=== PATIENT | male | born 1990 | race Caucasian/White ===

== ENCOUNTER 2022-11-19 14:52 | Emergency (ER) | payer SELFPAY ==
[~2022-11-19] VITALS: Ht 182.9 cm; Wt 81.6 kg
[2022-11-19 15:36] VITALS: BP 122/80
--- NOTE | 2022-11-19 15:36 | NUR ---
Patient discharged to home in stable condition. Written and verbal after care instructions given. Patient verbalizes understanding of instructions. Stressed follow up or return to ER for worsening s/s.
== END 2022-11-19 15:36 | disposition home or self-care (01) ==
LOC: ER 14:52
DX: M25.562 Pain in left knee (principal); S89.92XA Unspecified injury of left lower leg, initial encounter; X58.XXXA Exposure to other specified factors, initial encounter; Y93.67 Activity, basketball; Y92.310 Basketball court as the place of occurrence of the external cause
CPT/HCPCS: A4663